=== PATIENT | male | born 1970 | race Asian ===

== ENCOUNTER 2018-10-31 05:10 | Day surgery (SDC) | payer OTHER | END 2018-10-31 05:11 | disposition left against medical advice (07) | LOC: 2NE 05:10 → PP2 05:10 → SUR 05:10 | DX: K37 Unspecified appendicitis (principal); Z53.8 Procedure and treatment not carried out for other reasons ==

== ENCOUNTER 2018-10-31 05:35 | Inpatient (IN) | payer OTHER ==
[2018-10-31 06:35] LABS: ADD MAN DIFF? NO
[2018-10-31] MEDS: morphine 4 MG/ML VIAL IV (06:43)
[2018-10-31] MEDS: ONDANSETRON 4 MG INJ IV ×2 (06:43→20:10)
[2018-10-31 06:51] LABS: BASOPHILS % 0.1 % (0.0-2.0); HEMATOCRIT 48.5 % (42.0-52.0); HEMOGLOBIN 16.1 g/dl (14.0-18.0); LYMPHOCYTES # 1.1 10^3/ul (0.8-2.9); LYMPHOCYTES % 6.8 % (15.0-51.0); MEAN CORPUSCULAR HEMOGLOBIN 30.3 pg (29.0-33.0); MEAN CORPUSCULAR HGB CONC 33.2 g/dl (32.0-37.0); MEAN CORPUSCULAR VOLUME 91.3 fl (82.0-101.0); MEAN PLATELET VOLUME 10.2 fl (7.4-10.4); MONOCYTE # 0.5 10^3/ul (0.3-0.9); MONOCYTES % 3.4 % (0.0-11.0); NEUTROPHIL # 14.1 10^3/ul (1.6-7.5); NEUTROPHILS % 89.4 % (39.0-77.0); PLATELET COUNT 257 10^3/UL (140-415); POSITIVE DIFF @See below; RED BLOOD COUNT 5.31 10^6/ul (4.70-6.10); RED CELL DISTRIBUTION WIDTH 12.2 % (11.5-14.5)
[2018-10-31 06:51] LABS: WHITE BLOOD COUNT 15.8 10^3/ul (4.8-10.8)
[2018-10-31] MEDS: D5W-0.45 NACL + KCL 20 MEQ 1,000 ML IV ×2 (06:53→23:17)
[2018-10-31] MEDS ORDERED: NACL 0.9% 3 ML SYG IV (07:00)
[2018-10-31] MEDS ORDERED: DOCUSATE SODIUM 100 MG CAP PO (07:00)
[2018-10-31] MEDS ORDERED: BISACODYL (EC) 5 MG TAB PO (07:00)
[2018-10-31 07:25] LABS: ALANINE AMINOTRANSFERASE 30 IU/L (13-69); ALBUMIN 4.5 g/dl (3.3-4.9); ALKALINE PHOSPHATASE 66 IU/L (42-121); ANION GAP 10 (5-13); ASPARTATE AMINO TRANSFERASE 21 IU/L (15-46); BILIRUBIN,INDIRECT 1.6 mg/dl (0-1.1); BILIRUBIN,TOTAL 1.6 mg/dl (0.2-1.3); BLOOD UREA NITROGEN 18 mg/dl (7-20); CALCIUM 9.4 mg/dl (8.4-10.2); CARBON DIOXIDE 25 mmol/L (21-31); CHLORIDE 105 mmol/L (97-110); CREATININE 0.98 mg/dl (0.61-1.24); Estimated GFR > 60 mL/min (>60); GLUCOSE 117 mg/dl (70-220); LIPASE 54 U/L (23-300); POTASSIUM 3.8 mmol/L (3.5-5.1); SODIUM 140 mmol/L (135-144); TOTAL PROTEIN 7.5 g/dl (6.1-8.1)
[2018-10-31 08:44] LABS: ANISOCYTOSIS 1+ (0-0); BAND NEUTROPHILS #M 0.1 10^3/ul (0.0-0.6); BAND NEUTROPHILS % (M) 1 % (0-4); LYMPHOCYTES #M 0.6 10^3/ul (0.8-2.9); LYMPHOCYTES % (M) 4 % (15-51); METAMYELOCYTES #M 0.1 10^3/ul (0.0-0.0); METAMYELOCYTES %M 1 % (0-0); MONOCYTE #M 0.6 10^3/ul (0.3-0.9); MONOCYTES % (M) 4 % (0-11); MYELOCYTES #M 0.3 10^3/ul (0.0-0.0); MYELOCYTES % (M) 2 % (0-0); PLATELET ESTIMATE NORMAL; REACTIVE LYMPHOCYTES #M 0.1 10^3/ul (0.0-0.0); REACTIVE LYMPHOCYTES% (M) 1 % (0-0); SEG NEUT #M 13.8 10^3/ul (1.6-7.5); SEGMENTED NEUTROPHILS (M) % 87 % (39-77); SMUDGE%M 3 % (0-0)
[2018-10-31] MEDS: morphine 2 MG INJ IV ×3 (08:51→23:19)
[2018-10-31] MEDS: PIPER-TAZO 3.375 GM IV (PMX) 100 ML IVPB ×4 (09:14→21:19)
[2018-10-31] MEDS ORDERED: BUPIVACAINE 0.5%/EPI (SDV) 30 ML INJ (15:59)
[2018-10-31] MEDS ORDERED: LABETALOL HCL 20MG INJ IV (16:30)
[2018-10-31] MEDS ORDERED: HYDROmorphONE 1 MG/5 ML IV SYRINGE IV ×3 (16:30)
[2018-10-31] MEDS ORDERED: OXYCODONE/ACETAMINOPHEN (5/325) TAB PO (16:30)
[2018-10-31] MEDS ORDERED: ONDANSETRON 4 MG INJ IV ×2 (16:30→20:00)
[2018-10-31] MEDS ORDERED: MEPERIDINE 25 MG INJ IV (16:30)
[2018-10-31] MEDS ORDERED: FENTAnyl 50 MCG/ML VIAL IV (16:30)
[2018-10-31] MEDS ORDERED: PROCHLORPERAZINE 10 MG INJ IV (16:30)
[2018-10-31] MEDS ORDERED: DIPHENHYDRAMINE 50 MG INJ IV ×2 (16:30→20:00)
[2018-10-31] MEDS ORDERED: MIDAZOLAM 1 MG/ML 2 ML INJ (16:50)
[2018-10-31] MEDS ORDERED: FENTAnyl 50 MCG/ML VIAL ×2 (16:50→18:31)
[2018-10-31] MEDS ORDERED: ROPIVACAINE 0.5 % 30 ML VIAL (16:51)
[2018-10-31] MEDS ORDERED: SUCCINYLCHOLINE CHLORIDE 100 MG/5 ML SYG IV (17:19)
[2018-10-31] MEDS ORDERED: PROPOFOL 20 ML (17:19)
[2018-10-31] MEDS ORDERED: LIDOCAINE 2% (SDV) 5 ML INJ (17:19)
[2018-10-31] MEDS ORDERED: ROCURONIUM 50 MG INJ (17:19)
[2018-10-31] MEDS ORDERED: PHENYLephrine (100 MCG/ML) 10ML SYG (17:48)
[2018-10-31] MEDS ORDERED: DEXAMETHASONE 4 MG/ML 5 ML INJ (17:56)
[2018-10-31] MEDS ORDERED: FAMOTIDINE 20 MG INJ (17:56)
[2018-10-31] MEDS ORDERED: ONDANSETRON 4 MG INJ (17:56)
[2018-10-31] MEDS ORDERED: GLYCOPYRROLATE 0.4 MG INJ (18:23)
[2018-10-31] MEDS ORDERED: NEOSTIGMINE 3 MG/3 ML SYRINGE (18:23)
[2018-10-31] MEDS: SOD CHLORIDE 0.9% 1,000 ML IV ×2 (19:01→21:00)
[2018-10-31] MEDS: hydrALAzine 20 MG INJ IV ×2 (19:33→19:50)
[2018-10-31] MEDS ORDERED: KETOROLAC 30 MG INJ IV (20:00)
[2018-10-31] MEDS ORDERED: ACETAMINOPHEN 325 MG TAB PO (20:00)
[2018-10-31] MEDS ORDERED: HYDROmorphONE 0.5 MG/0.5 ML SYG IV (20:00)
[2018-10-31 23:54] LABS: ADD UMIC NO; UR ASCORBIC ACID NEGATIVE (NEGATIVE); UR BILIRUBIN (Dip) NEGATIVE (NEGATIVE); UR BLOOD (Dip) NEGATIVE (NEGATIVE); UR CLARITY CLEAR (CLEAR); UR COLOR YELLOW (YELLOW); UR GLUCOSE (Dip) NEGATIVE (NEGATIVE); UR KETONES (Dip) 2+ mg/dL (NEGATIVE); UR LEUKOCYTE ESTERASE (Dip) NEGATIVE Leu/ul (NEGATIVE); UR NITRITE (Dip) NEGATIVE (NEGATIVE); UR SPECIFIC GRAVITY (Dip) 1.019 (1.003-1.030); UR TOTAL PROTEIN (Dip) NEGATIVE (NEGATIVE); UR UROBILINOGEN (Dip) NEGATIVE (NEGATIVE)
[2018-11-01] MEDS ORDERED: PIPER-TAZO 3.375 GM IV (PMX) 100 ML IVPB
[2018-11-01 00:14] LABS: AMPHETAMINE/METHAMPHETAMINE Negative (NEGATIVE); BARBITURATES Negative (NEGATIVE); CANNABINOIDS Negative (NEGATIVE); COCAINE Negative (NEGATIVE); OPIATES Positive (NEGATIVE)
[2018-11-01 00:36] LABS: BENZODIAZEPINES Positive (NEGATIVE)
[2018-11-01] MEDS: HYDROCODONE/APAP (5/325) TAB PO (03:35)
[2018-11-01] MEDS: ONDANSETRON 4 MG INJ IV ×3 (03:35→20:50)
[2018-11-01 05:34] LABS: HEMOGLOBIN 12.7 g/dl (14.0-18.0); MEAN CORPUSCULAR HEMOGLOBIN 30.2 pg (29.0-33.0); MEAN CORPUSCULAR HGB CONC 32.6 g/dl (32.0-37.0); MEAN CORPUSCULAR VOLUME 92.9 fl (82.0-101.0); MEAN PLATELET VOLUME 10.1 fl (7.4-10.4); PLATELET COUNT 210 10^3/UL (140-415); POSITIVE DIFF @See below; RED CELL DISTRIBUTION WIDTH 12.7 % (11.5-14.5)
[2018-11-01 05:34] LABS: WHITE BLOOD COUNT 16.6 10^3/ul (4.8-10.8)
[2018-11-01] MEDS: D5W-0.45 NACL + KCL 20 MEQ 1,000 ML IV (05:42)
[2018-11-01 05:53] LABS: ADD MAN DIFF? YES
[2018-11-01] MEDS: PIPER-TAZO 3.375 GM IV (PMX) 100 ML IVPB ×5 (06:04→23:43)
[2018-11-01 06:13] LABS: ANION GAP 7 (5-13); BLOOD UREA NITROGEN 12 mg/dl (7-20); CALCIUM 8.4 mg/dl (8.4-10.2); CARBON DIOXIDE 22 mmol/L (21-31); CHLORIDE 109 mmol/L (97-110); CREATININE 0.92 mg/dl (0.61-1.24); Estimated GFR > 60 mL/min (>60); GLUCOSE 167 mg/dl (70-220); SODIUM 138 mmol/L (135-144)
[2018-11-01] MEDS: IBUPROFEN 600 MG TAB PO (06:13)
[2018-11-01 07:03] LABS: ANISOCYTOSIS 1+ (0-0); BAND NEUTROPHILS #M 2.9 10^3/ul (0.0-0.6); BAND NEUTROPHILS % (M) 18 % (0-4); BURR CELLS 1+ (0-0); LYMPHOCYTES #M 1.1 10^3/ul (0.8-2.9); LYMPHOCYTES % (M) 7 % (15-51); MICROCYTOSIS 1+ (0-0); MONOCYTE #M 0.4 10^3/ul (0.3-0.9); MONOCYTES % (M) 3 % (0-11); PLATELET ESTIMATE NORMAL; POIKILOCYTOSIS 1+ (0-0); POLYCHROMASIA 2+ (0-0); SEG NEUT #M 12.4 10^3/ul (1.6-7.5); SEGMENTED NEUTROPHILS (M) % 72 % (39-77)
[2018-11-01] MEDS: ACETAMINOPHEN 325 MG TAB PO (20:51)
[2018-11-01] MEDS ORDERED: ZOLPIDEM 5 MG TAB PO (23:30)
[2018-11-01] MEDS: morphine 2 MG INJ IV (23:43)
[2018-11-02] MEDS: PIPER-TAZO 3.375 GM IV (PMX) 100 ML IVPB ×3 (05:56→11:49)
[2018-11-02] MEDS: ONDANSETRON 4 MG INJ IV (05:58)
[2018-11-02 06:33] LABS: ADD MAN DIFF? NO
[2018-11-02] MEDS: ACETAMINOPHEN 325 MG TAB PO (06:36)
[2018-11-02 06:43] LABS: BASOPHILS % 0.3 % (0.0-2.0); EOSINOPHILS # 0.1 10^3/ul (0.0-0.5); EOSINOPHILS % 0.6 % (0.0-7.0); HEMATOCRIT 38.2 % (42.0-52.0); HEMOGLOBIN 12.4 g/dl (14.0-18.0); LYMPHOCYTES # 1.8 10^3/ul (0.8-2.9); LYMPHOCYTES % 15.3 % (15.0-51.0); MEAN CORPUSCULAR HEMOGLOBIN 30.6 pg (29.0-33.0); MEAN CORPUSCULAR HGB CONC 32.5 g/dl (32.0-37.0); MEAN CORPUSCULAR VOLUME 94.3 fl (82.0-101.0); MEAN PLATELET VOLUME 10.6 fl (7.4-10.4); MONOCYTE # 0.6 10^3/ul (0.3-0.9); MONOCYTES % 5.2 % (0.0-11.0); NEUTROPHIL # 9.3 10^3/ul (1.6-7.5); NEUTROPHILS % 78.1 % (39.0-77.0); PLATELET COUNT 217 10^3/UL (140-415); RED BLOOD COUNT 4.05 10^6/ul (4.70-6.10); RED CELL DISTRIBUTION WIDTH 12.3 % (11.5-14.5)
[2018-11-02 06:43] LABS: WHITE BLOOD COUNT 11.9 10^3/ul (4.8-10.8)
[2018-11-02 07:20] LABS: ANION GAP 6 (5-13); BLOOD UREA NITROGEN 16 mg/dl (7-20); CALCIUM 8.2 mg/dl (8.4-10.2); CARBON DIOXIDE 26 mmol/L (21-31); CHLORIDE 110 mmol/L (97-110); CREATININE 1.01 mg/dl (0.61-1.24); Estimated GFR > 60 mL/min (>60); GLUCOSE 100 mg/dl (70-220); SODIUM 142 mmol/L (135-144)
[2018-11-02] MEDS: LOSARTAN 50 MG TAB PO (11:25)
== END 2018-11-02 13:10 | disposition home or self-care (01) | DRG 853 ==
LOC: E/R 05:35 → PP2 06:32
PROC: 0DTJ4ZZ Resection of Appendix, Percutaneous Endoscopic Approach (ICD-10-PCS; principal; 2018-10-31 15:26)
DX: A41.9 Sepsis, unspecified organism (principal); K35.32 Acute appendicitis with perforation, localized peritonitis, and gangrene, without abscess; I10 Essential (primary) hypertension; R11.2 Nausea with vomiting, unspecified; F34.1 Dysthymic disorder; Z59.0 Homelessness; Z87.891 Personal history of nicotine dependence
CPT/HCPCS: 36415; 71045; 80048; 80053; 80307; 81003; 83605; 83690; 85025; 88304; 93005; 99285-25